=== PATIENT | male | born 1945 | race Caucasian/White ===

== ENCOUNTER 2017-08-28 08:17 | Inpatient (IN) | payer OTHER ==
[~2017-08-28] VITALS: Ht 170.2 cm; Wt 62.0 kg
[~2017-08-28 08:17] MED LIST: ASPI81 PO; CEPH500C3 PO; FISH1000 PO; LISI2.5T55 PO; TYLE3 PO; Z.0.UNKNOWN
[2017-08-28 08:20] VITALS: BP 141/85; PULSE 101; RESP 13; TEMP 98.6; O2SAT 97
[2017-08-28] MEDS ORDERED: SODIUM CHLORIDE 0.9% FLUSH 10 ML FLUSH IVF PRN (09:30)
[2017-08-28] MEDS ORDERED: ONDANSETRON HCL 4 MG/2 ML VIAL IV PUSH ONE (09:30)
[2017-08-28] MEDS ORDERED: MORPHINE SULFATE 4 MG/ML INJ IV PUSH ONE (09:30)
[2017-08-28] MEDS ORDERED: LIDOCAINE 1%/EPINEPHrine 1:100,000 SOLN 20 ML VIAL INFIL ONE (09:30)
[2017-08-28] MEDS ORDERED: CLINDAMYCIN INJ 600 MG in SODIUM CHLORIDE 0.9% INJ 100 ML IV ONE (09:30)
[2017-08-28 09:47] LABS: AUTOMATED NEUTROPHIL # 18.7 TH/MM3 (1.8-7.7); BASOPHIL # 0.1 TH/MM3 (0-0.2); BASOPHIL % 0.4 % (0.0-2.0); EOSINOPHIL % 0.1 % (0.0-4.0); HEMATOCRIT 40.4 % (39.0-51.0); HEMOGLOBIN 13.5 GM/DL (13.0-17.0); LYMPH % 5.1 % (9.0-44.0); LYMPHOCYTE # 1.1 TH/MM3 (1.0-4.8); MEAN CELL VOLUME 92.6 FL (80.0-100.0); MEAN CORPUSCULAR HGB CONC 33.4 % (32.0-36.0); MEAN PLATELET VOLUME 8.2 FL (7.0-11.0); MONO % 10.4 % (0.0-8.0); MONOCYTE # 2.3 TH/MM3 (0-0.9); PLATELET COUNT 282 TH/MM3 (150-450); RED BLOOD COUNT 4.36 MIL/MM3 (4.50-5.90); WHITE BLOOD COUNT 22.3 TH/MM3 (4.0-11.0)
[2017-08-28 10:03] LABS: BICARBONATE 29.2 MEQ/L (21.0-32.0); CREATININE 0.92 MG/DL (0.60-1.30)
[2017-08-28] MEDS ORDERED: SODIUM CHLOR 0.9% 1000 ML INJ 1,000 ML IV ONE ×2 (10:45)
[2017-08-28] MEDS ORDERED: IOHEXOL 350 MG/ML 10 ML VIAL (for RAD DIAG) IVCONTRAST ONE (10:48)
--- NOTE | 2017-08-28 11:14 | PD ---
HPI . Neck pain Chief Complaint: Skin Problem Time Seen by Provider: 09:18 Travel History International Travel<30 days: No Contact w/Intl Traveler<30days: No Traveled to known affect area: No History of Present Illness HPI This patient was sent to us from the OR clinic for posterior neck pain. He noticed a small pimple about a week ago. It has been getting progressively worse since that time. He subsequently presented to the OR clinic today they wished and treatment. They sent him to us. The patient denies any fevers or chills. He rates his pain 5/10. No modifying factors. He has a history of hypertension but not diabetes. No IV drug abuse. No IVDA. PFSH Past Medical History High Cholesterol: Yes Coronary Artery Disease: Yes Diminished Hearing: No Hypertension: Yes Past Surgical History Appendectomy: Yes Cholecystectomy: Yes Social History Alcohol Use: No Tobacco Use: Yes (1 PPD) Substance Use: No Allergies-Medications (Allergen,Severity, Reaction): Coded Allergies: No Known Allergies (Verified Allergy, Unknown, 08/28/17) Reported Meds & Prescriptions Reported Meds & Active Scripts Active Keflex (Cephalexin Monohydrate) 500 Mg Cap 1 Tab PO Q6 5 Days Tylenol #3 (Acetaminophen/Codeine Phosphate) 300 Mg/30 Mg Tab 1 Tab PO Q6HPRN Reported Fish Oil 1,000 Mg Cap 1,200 Mg PO Aspirin 81 Mg Tab 81 Mg PO DAILY Unknown Meds (Miscellaneous Medication) Misc Lisinopril 2.5 Mg Tab 2.5 Mg PO Review of Systems Except as stated in HPI: all other systems reviewed are Neg General / Constitutional: No: Fever, Chills HENT: Positive: Neck Pain Musculoskeletal: No: Myalgias Physical Exam Narrative GENERAL: This man is awake and alert and in no acute distress. SKIN: Large area of erythema on the posterior neck. It is indurated. There is a small area of fluctuance in the center of the swollen, erythematous area. It is tender. HEAD: Normocephalic/atraumatic. EYES: Pupils are equal. Extraocular movements are intact. NECK: Negative with the exception of the skin. CARDIOVASCULAR: Regular rate and rhythm. RESPIRATORY: Nonlabored respirations. MUSCULOSKELETAL: Atraumatic. NEUROLOGICAL: Nonfocal. PSYCHIATRIC: Appropriate mood and affect. Data Data Last Documented VS Vital Signs Date Time Temp Pulse Resp B/P (MAP) Pulse Ox O2 Delivery O2 Flow Rate FiO2 08/28/17 08:20 98.6 101 13 141/85 (103) 97 Orders Orders Basic Metabolic Panel (Bmp) (08/28/17 09:18) Complete Blood Count With Diff (08/28/17 09:18) Wound Culture And Gram Stain (08/28/17 09:18) Iv Access Insert/Monitor (08/28/17 09:18) Sodium Chloride 0.9% Flush (Ns Flush) (08/28/17 09:30) Clindamycin Inj (Cleocin Inj) (08/28/17 09:30) Lidocai-Epi 1%-1:100,000 Inj (Xylocaine- (08/28/17 09:30) Ct Soft Tiss Neck W Iv Cont (08/28/17 09:18) Ondansetron Inj (Zofran Inj) (08/28/17 09:30) Morphine Inj (Morphine Inj) (08/28/17 09:30) Lactic Acid (08/28/17 10:37) Sodium Chlor 0.9% 1000 Ml Inj (Ns 1000 M (08/28/17 10:45) Sodium Chlor 0.9% 1000 Ml Inj (Ns 1000 M (08/28/17 10:45) Iohexol 350 Inj (Omnipaque 350 Inj) (08/28/17 10:48) Admit To Inpatient (08/28/17 ) Vital Signs (Adult) Q4H (08/28/17 11:55) Activity Oob Ad Evette (08/28/17 11:55) Sodium Chloride 0.9% Flush (Ns Flush) (08/28/17 12:00) Sodium Chloride 0.9% Flush (Ns Flush) (08/28/17 21:00) Acetaminophen (Tylenol) (08/28/17 12:00) Ondansetron Inj (Zofran Inj) (08/28/17 12:00) Temazepam (Restoril) (08/28/17 12:00) Basic Metabolic Panel (Bmp) (08/29/17 06:00) Complete Blood Count With Diff (08/29/17 06:00) Resp Oxygen Adolph C Titrat 1-4 L (08/28/17 ) Enoxaparin Inj (Lovenox Inj) (08/28/17 12:00) Naloxone Inj (Narcan Inj) (08/28/17 12:00) Magnesium Hydroxide Liq (Milk Of Magnesi (08/28/17 12:00) Sennosides (Senokot) (08/28/17 12:00) Bisacodyl Supp (Dulcolax Supp) (08/28/17 12:00) Lactulose Liq (Lactulose Liq) (08/28/17 12:00) Inpatient Certification (08/28/17 ) Admit Order (Ed Use Only) (08/28/17 ) Vital Signs (Adult) Q4H (08/28/17 11:58) Diet Heart Healthy (08/28/17 Lunch) Activity Oob With Assistance (08/28/17 11:58) Notify Dr: Other (08/28/17 11:58) Labs Laboratory Tests Test 08/28/17 09:33 08/28/17 11:15 White Blood Count 22.3 TH/MM3 Red Blood Count 4.36 MIL/MM3 Hemoglobin 13.5 GM/DL Hematocrit 40.4 % Mean Corpuscular Volume 92.6 FL Mean Corpuscular Hemoglobin 31.0 PG Mean Corpuscular Hemoglobin Concent 33.4 % Red Cell Distribution Width 14.0 % Platelet Count 282 TH/MM3 Mean Platelet Volume 8.2 FL Neutrophils (%) (Auto) 84.0 % Lymphocytes (%) (Auto) 5.1 % Monocytes (%) (Auto) 10.4 % Eosinophils (%) (Auto) 0.1 % Basophils (%) (Auto) 0.4 % Neutrophils # (Auto) 18.7 TH/MM3 Lymphocytes # (Auto) 1.1 TH/MM3 Monocytes # (Auto) 2.3 TH/MM3 Eosinophils # (Auto) 0.0 TH/MM3 Basophils # (Auto) 0.1 TH/MM3 CBC Comment AUTO DIFF Differential Comment AUTO DIFF CONFIRMED Platelet Estimate NORMAL Platelet Morphology Comment NORMAL Blood Urea Nitrogen 9 MG/DL Creatinine 0.92 MG/DL Random Glucose 110 MG/DL Calcium Level 10.0 MG/DL Sodium Level 135 MEQ/L Potassium Level 3.8 MEQ/L Chloride Level 99 MEQ/L Carbon Dioxide Level 29.2 MEQ/L Anion Gap 7 MEQ/L Estimat Glomerular Filtration Rate 81 ML/MIN Lactic Acid Level 0.7 mmol/L MDM Medical Decision Making Medical Screen Exam Complete: Yes Emergency Medical Condition: Yes Differential Diagnosis My differential diagnosis includes but is not limited to localized wound infection, cellulitis, abscess Narrative Course This patient presents with an area of induration, erythema and tenderness on the posterior neck. An IV was started and he was given morphine/Zofran for pain. He was given clindamycin empirically. Blood cultures were also ordered. CBC & BMP Diagram 08/28/17 09:33 Calcium Level 10.0 A lactic acid level was added. Last Impressions Neck CT 08/28/17917 Signed Impressions: Service Date/Time: Monday, August 28, 2017 10:44 - CONCLUSION: 1. Cellulitis in the posterior left neck without abscess. 2. There is a 10 mm sebaceous cyst present also in the same location Dallin Real MD This patient will be admitted for IV antibiotics. LA 0.7 Sepsis Criteria SIRS Criteria (2 or more): Heart rate over 90, WBC > 39847, < 4000 or > 10% bands Sepsis Criteria (SIRS+source): Infect source susp/known Criteria Outcome: Meets SIRS criteria, Meets sepsis criteria Physician Communication Physician Communication Dr. Sargent will admit Diagnosis Primary Impression: Sepsis Qualified Codes: A41.9 - Sepsis, unspecified organism Additional Impression: Cellulitis of neck Admitting Information Admitting Physician Requests: Admit Condition: Stable Li Cordova MD Aug 28, 2017 11:14
--- NOTE | 2017-08-28 11:17 | RADRPT ---
EXAM DATE/TIME: 08/28/2017 10:44 [facility] COMPARISON: No previous studies available for comparison. INDICATIONS : Left sided posterior neck paion with reddening IV CONTRAST: 65 cc Omnipaque 350 (iohexol) IV RADIATION DOSE: 17.18 CTDIvol (mGy) MEDICAL HISTORY : Hypertension. Cardiovascular disease SURGICAL HISTORY : Cholecystectomy. ENCOUNTER: Initial ACUITY: 1 day PAIN SCALE: 5/10 LOCATION: Left posterior neck TECHNIQUE: Volumetric scanning of the neck was performed. Using automated exposure control and adjustment of th e mA and/or kV according to patient size, radiation dose was kept as low as reasonably achievable to obtain optimal diagnostic quality images. DICOM format image data is available electronically for r eview and comparison. FINDINGS: Examination of the skull base demonstrates no evidence of deep infiltrating mucosal lesion. The oroph arynx, hypopharynx, glottic and subglottic airway demonstrate no abnormality. Examination of the neck for adenopathy demonstrates no abnormally large lymph nodes by CT criteria. T he thyroid gland demonstrates resection of the left lobe Lung apices demonstrate no evidence of pulmonary nodule. Bone windows are unremarkable. There is skin thickening in the posterior left neck with cellulitis and edema in the subcutaneous tis sues. There is no evidence of abscess. CONCLUSION: 1. Cellulitis in the posterior left neck without abscess. 2. There is a 10 mm sebaceous cyst present also in the same location Dallin Real MD on August 28, 2017 at 11:06 Board Certified Radiologist. This report was verified electronically.
[2017-08-28] MEDS ORDERED: BISACODYL 10 MG SUPP RECTAL PRN (12:00)
[2017-08-28] MEDS ORDERED: LACTULOSE SYRUP 20 GM/30 ML CUP PO PRN (12:00)
[2017-08-28] MEDS ORDERED: SODIUM CHLORIDE 0.9% FLUSH 10 ML FLUSH IV FLUSH PRN (12:00)
[2017-08-28] MEDS ORDERED: ACETAMINOPHEN 325 MG TAB PO PRN (12:00)
[2017-08-28] MEDS ORDERED: NALOXONE HCL 0.4 MG/ML AMP IV PUSH PRN (12:00)
[2017-08-28] MEDS ORDERED: MAGNESIUM HYDROXIDE SUSP 30 ML CUP PO PRN (12:00)
[2017-08-28] MEDS ORDERED: ONDANSETRON HCL 4 MG/2 ML VIAL IVP PRN (12:00)
[2017-08-28] MEDS ORDERED: SENNOSIDES 8.6 MG TAB PO PRN (12:00)
[2017-08-28 12:01] VITALS: BP 214/98; PULSE 103; RESP 17; TEMP 99.5; O2SAT 95
[2017-08-28] MEDS ORDERED: OMEGCAP PO (12:06)
[2017-08-28] MEDS ORDERED: LISI-515 PO (12:06)
[2017-08-28 12:31] VITALS: BP 178/92; PULSE 105; RESP 19; O2SAT 96
[2017-08-28] MEDS: ENOXAPARIN SODIUM 40 MG/0.4 ML SYRINGE SQ SCH (13:00)
[2017-08-28] MEDS ORDERED: Vancomycin Consult Pharmacy 1 EA OTHER SCH (15:15)
[2017-08-28] MEDS ORDERED: VANCOMYCIN INJ 1,250 MG in SODIUM CHLOR 0.9% 250 ML INJ 250 ML IV ONE (15:15)
--- NOTE | 2017-08-28 15:34 | HHI.HP ---
[facility] No Primary Care Physician Admission Diagnosis cellulitis posterior neck Diagnoses: Chief Complaint: Back of the Neck swelling, pain. Travel History International Travel<30 Days: No Contact w/Intl Traveler <30 Da: No Traveled to Known Affected Are: No Sepsis Criteria SIRS Criteria (2 or more): Heart rate over 90, WBC > 74949, < 4000 or > 10% bands Sepsis Criteria (SIRS+source): Infect source susp/known Criteria Outcome: Meets SIRS criteria, Meets sepsis criteria History of Present Illness Mr. Saldana is a pleasant 72-year-old [employer] with a history of hypertension who presents to the emergency department due to swelling and pain on the back of his neck. Started about 5 days prior to his admission, patient reports initially the lump on his neck that kept growing and became more painful. He denies any discharge from the lump. He denies any fever but reports chills. He applied some topical antibiotics as well as heart compression without any relief of symptoms. He went to his primary care physician at the [facility] who referred patient to the emergency department. At the time of this interview, patient is resting well in bed. He complains of neck pain. No fever. Denies any changes in bowel or bladder habits. Denies any chest pain, shortness of breath, cough, abdominal pain. Review of Systems Except as stated in HPI: all other systems reviewed are Neg Past Family Social History Past Medical History Hypertension, insomnia, GERD Past Surgical History Cholecystectomy, appendectomy Reported Medications Lisinopril 20 minute grams daily Trazodone Ranitidine Allergies: Coded Allergies: No Known Allergies (Verified Allergy, Unknown, 08/28/17) Family History No family history of cancer or heart disease. Social History Patient smokes about 1 pack a day. Quit drinking about 50 years ago. Physical Exam Vital Signs Vital Signs Date Time Temp Pulse Resp B/P (MAP) Pulse Ox O2 Delivery O2 Flow Rate FiO2 08/28/17 12:31 105 19 178/92 (120) 96 Nasal Cannula 2.00 08/28/17 12:01 99.5 103 17 214/98 (136) 95 Nasal Cannula 2.00 10/30/17 08:20 98.6 101 13 141/85 (103 97 Physical Exam GENERAL: This is a well-nourished, well-developed patient, in no apparent distress. SKIN: No rashes, ecchymoses or lesions. Warm and dry. HEAD: Atraumatic. Normocephalic. No temporal or scalp tenderness. EYES: Pupils equal round and reactive. No injection or drainage. ENT: Nose without bleeding, purulent drainage or septal hematoma. Airway patent. NECK: Trachea midline. No lymphadenopathy. Supple, nontender, no meningeal signs. Back of the neck has large induration without any significant erythema, tender to palpation. No drainage. CARDIOVASCULAR: Tachycardic, regular rhythm without murmurs, gallops, or rubs. No JVD. RESPIRATORY: Moderate air entry, no appreciable wheezing. No wheezes, rales, or rhonchi. GASTROINTESTINAL: Abdomen soft, non-tender, nondistended. No guarding. MUSCULOSKELETAL: Extremities without clubbing, cyanosis, or edema. NEUROLOGICAL: Awake and alert. Cranial nerves II through XII intact. No focal neurological deficits. Normal speech. Laboratory Laboratory Tests Test 08/28/17 09:33 08/28/17 11:15 White Blood Count 22.3 Red Blood Count 4.36 Hemoglobin 13.5 Hematocrit 40.4 Mean Corpuscular Volume 92.6 Mean Corpuscular Hemoglobin 31.0 Mean Corpuscular Hemoglobin Concent 33.4 Red Cell Distribution Width 14.0 Platelet Count 282 Mean Platelet Volume 8.2 Neutrophils (%) (Auto) 84.0 Lymphocytes (%) (Auto) 5.1 Monocytes (%) (Auto) 10.4 Eosinophils (%) (Auto) 0.1 Basophils (%) (Auto) 0.4 Neutrophils # (Auto) 18.7 Lymphocytes # (Auto) 1.1 Monocytes # (Auto) 2.3 Eosinophils # (Auto) 0.0 Basophils # (Auto) 0.1 CBC Comment AUTO DIFF Differential Comment AUTO DIFF CONFIRMED Platelet Estimate NORMAL Platelet Morphology Comment NORMAL Blood Urea Nitrogen 9 Creatinine 0.92 Random Glucose 110 Calcium Level 10.0 Sodium Level 135 Potassium Level 3.8 Chloride Level 99 Carbon Dioxide Level 29.2 Anion Gap 7 Estimat Glomerular Filtration Rate 81 Lactic Acid Level 0.7 Result Diagram: 08/28/1733 08/28/17932 Imaging Last Impressions Neck CT 08/28/17917 Signed Impressions: Service Date/Time: Monday, August 28, 2017 10:44 - CONCLUSION: 1. Cellulitis in the posterior left neck without abscess. 2. There is a 10 mm sebaceous cyst present also in the same location MD Nick Antonio VTE Risk Assessment Caprini VTE Risk Assessment: Mod/High Risk (score >= 2) Caprini Risk Assessment Model Point Value = 1 Point Value = 2 Point Value = 3 Point Value = 5 Age 41-60 Minor surgery BMI > 25 kg/m2 Swollen legs Varicose veins or History of unexplained or recurrent spontaneous Oral contraceptives or hormone replacement Sepsis (< 1 month) Serious lung disease, including pneumonia (< 1 month) Abnormal pulmonary function Acute myocardial infarction Congestive heart failure (< 1 month) History of inflammatory bowel disease Medical patient at bed rest Age 61-74 Arthroscopic surgery Major open surgery (> 45 min) Laparoscopic surgery (> 45 min) Malignancy Confined to bed (> 72 hours) Immobilizing plaster cast Central venous access Age >= 75 History of VTE Family history of VTE Factor V Leiden Prothrombin [id number] Lupus anticoagulant Anticardiolipin antibodies Elevated serum homocysteine Heparin-induced thrombocytopenia Other congenital or acquired thrombophilia Stroke (< 1 month) Elective arthroplasty Hip, pelvis, or leg fracture Acute spinal cord injury (< 1 month) Prophylaxis Regimen Total Risk Factor Score Risk Level Prophylaxis Regimen 0-1 Low Early ambulation 2 Moderate Order ONE of the following: *Sequential Compression Device (SCD) *Heparin 5000 units SQ BID 3-4 Higher Order ONE of the following medications: *Heparin 5000 units SQ TID *Enoxaparin/Lovenox 40 mg SQ daily (WT < 150 kg, CrCl > 30 mL/min) *Enoxaparin/Lovenox 30 mg SQ daily (WT < 150 kg, CrCl > 10-29 mL/min) *Enoxaparin/Lovenox 30 mg SQ BID (WT < 150 kg, CrCl > 30 mL/min) AND/OR *Sequential Compression Device (SCD) 5 or more Highest Order ONE of the following medications: *Heparin 5000 units SQ TID (Preferred with Epidurals) *Enoxaparin/Lovenox 40 mg SQ daily (WT < 150 kg, CrCl > 30 mL/min) *Enoxaparin/Lovenox 30 mg SQ daily (WT < 150 kg, CrCl > 10-29 mL/min) *Enoxaparin/Lovenox 30 mg SQ BID (WT < 150 kg, CrCl > 30 mL/min) AND *Sequential Compression Device (SCD) Assessment and Plan Problem List: (1) Sepsis ICD Code: A41.9 - Sepsis, unspecified organism Status: Acute (2) Cellulitis of neck ICD Code: L03.221 - Cellulitis of neck Status: Acute (3) HTN (hypertension) ICD Code: I10 - Essential (primary) hypertension (4) GERD (gastroesophageal reflux disease) ICD Code: K21.9 - Gastro-esophageal reflux disease without esophagitis (5) Insomnia ICD Code: G47.00 - Insomnia, unspecified Assessment and Plan Mr. Saldana is a pleasant 72-year-old [employer] with a history of hypertension who presents to the emergency department today due to 5 day duration of back of the neck swelling, pain that started out as a lump. Patient denies fever but reports chills. - Sepsis (WBC 22.3K, pulse 101, infection neck cellulitis) - Cellulitis of the neck - No purulent drainage. However, due to SIRS, we will cover him with Vancomycin (MRSA coverage). - Will start patient on Ceftriaxone 2g Q24hrs for Streptococcus and MSSA coverage. - If patient remains afebrile and leukocytosis improves, consider discontinuing vancomycin on 08/29/2017. - We'll obtain blood cultures. - Pain management with acetaminophen, Percocet, Dilaudid IV when necessary. - Hypertension - On arrival blood pressure was 141/85, later on increased to 214/98 and 178/ 92. - Possibly due to pain. We'll continue home medication lisinopril 20 mg daily. - Clonidine 0.1mg Q6hrs PRN. - Insomnia - GERD - Continue trazodone and ranitidine. Full code. Lovenox. Physician Certification 2 Midnight Certification Type: Admission for Inpatient Services Order for Inpatient Services The services are ordered in accordance with Medicare regulations or non- Medicare payer requirements, as applicable. In the case of services not specified as inpatient-only, they are appropriately provided as inpatient services in accordance with the 2-midnight benchmark. Estimated LOS (days): 3 days is the estimated time the patient will need to remain in the hospital, assuming treatment plan goals are met and no additional complications. Post-Hospital Plan: Home Problem Qualifiers (1) Sepsis: Qualified Codes: A41.9 - Sepsis, unspecified organism Delmar Sargent DO Aug 28, 2017 15:34
[2017-08-28] MEDS ORDERED: LISINOPRIL 20 MG TAB PO ONE (15:45)
[2017-08-28 16:00] VITALS: BP 187/88; PULSE 98; RESP 16; TEMP 99.8; O2SAT 97
[2017-08-28] MEDS: VANCOMYCIN 1,000 MG/NS 250 ML IV SCH ×2 (16:22)
[2017-08-28] MEDS: oxyCODONE/ACETAMINOPHEN 7.5 MG/325 MG TAB PO PRN ×2 (16:33→22:21)
[2017-08-28] MEDS: cefTRIAXone INJ 2,000 MG in SODIUM CHLORIDE 0.9% INJ 100 ML IV SCH (18:34)
[2017-08-28 21:16] VITALS: BP 137/65; PULSE 86; RESP 20; TEMP 98.5; O2SAT 98
[2017-08-28] MEDS: SODIUM CHLORIDE 0.9% FLUSH 10 ML FLUSH IV FLUSH SCH (21:39)
[2017-08-29] VITALS (9 sets, daily range): BP systolic 123–194; BP diastolic 58–86; PULSE 84–93; RESP 18–20; TEMP 97.1–100; O2SAT 92–97
[2017-08-29] MEDS: cloNIDine HCL 0.1 MG TAB PO PRN ×2 (03:59→20:38)
[2017-08-29] MEDS: oxyCODONE/ACETAMINOPHEN 7.5 MG/325 MG TAB PO PRN ×3 (03:59→20:38)
[2017-08-29 06:59] LABS: AUTOMATED NEUTROPHIL # 19.8 TH/MM3 (1.8-7.7); BASOPHIL # 0.1 TH/MM3 (0-0.2); BASOPHIL % 0.3 % (0.0-2.0); EOSINOPHIL # 0.5 TH/MM3 (0-0.4); EOSINOPHIL % 1.9 % (0.0-4.0); HEMATOCRIT 34.8 % (39.0-51.0); HEMOGLOBIN 11.7 GM/DL (13.0-17.0); LYMPH % 4.2 % (9.0-44.0); MEAN CELL VOLUME 93.1 FL (80.0-100.0); MEAN CORPUSCULAR HEMOGLOBIN 31.4 PG (27.0-34.0); MEAN CORPUSCULAR HGB CONC 33.7 % (32.0-36.0); MEAN PLATELET VOLUME 8.5 FL (7.0-11.0); MONO % 11.3 % (0.0-8.0); MONOCYTE # 2.7 TH/MM3 (0-0.9); NEUT % 82.3 % (16.0-70.0); PLATELET COUNT 239 TH/MM3 (150-450); RED BLOOD COUNT 3.74 MIL/MM3 (4.50-5.90); RED CELL DISTRIBUTION WIDTH 13.9 % (11.6-17.2)
[2017-08-29 07:37] LABS: BICARBONATE 31.1 MEQ/L (21.0-32.0); CALCIUM 8.9 MG/DL (8.5-10.1); CREATININE 1.05 MG/DL (0.60-1.30)
[2017-08-29] MEDS: LISINOPRIL 20 MG TAB PO SCH (08:14)
[2017-08-29] MEDS: SODIUM CHLORIDE 0.9% FLUSH 10 ML FLUSH IV FLUSH SCH ×2 (08:14→20:39)
[2017-08-29 09:17] LABS: BANDS 9 % (0-6); LYMPHOCYTES 1 % (9-44); METAMYELOCYTES 1 % (0-1); MONOCYTES 2 % (0-8); NEUTROPHIL # MANUAL DIFF 22.8 TH/MM3 (1.8-7.7); POLYS (SEG NEUTROPHILS) 85 % (16-70)
[2017-08-29] MEDS: VANCOMYCIN 1,000 MG/NS 250 ML IV SCH ×2 (09:47)
[2017-08-29] MEDS: ENOXAPARIN SODIUM 40 MG/0.4 ML SYRINGE SQ SCH (13:27)
--- NOTE | 2017-08-29 15:40 | HHI.PR ---
Subjective Remarks Follow up cellulitis. Patient reports continued pain in the posterior neck. No drainage. He is having itching on his legs and has a rash, which he thinks is from laying down too much. He states "I'm not allergic to anything". No dyspnea or wheezing. Objective Vitals Vital Signs Date Time Temp Pulse Resp B/P (MAP) Pulse Ox O2 Delivery O2 Flow Rate FiO2 08/29/17 11:13 98.2 84 20 146/67 (93) 97 08/29/17 08:36 97 Nasal Cannula 2.00 08/29/17 07:48 98.2 87 20 158/71 (100) 94 08/29/17 04:19 96 Nasal Cannula 2.00 08/29/17 04:00 97.1 89 20 194/86 (122) 93 08/29/17 01:20 99.0 93 20 126/68 (87) 96 08/28/17 21:16 98.5 86 20 137/65 (89) 98 08/28/17 16:00 99.8 98 16 187/88 (121) 97 I/O 08/28/17 08/28/17 08/28/17 08/29/17 08/29/17 08/29/17 07:00 15:00 23:00 07:00 15:00 23:00 Intake Total 2104 ml 340 ml 970 ml Balance 2104 ml 340 ml 970 ml Intake Oral 720 ml IV Total 2104 ml 340 ml 250 ml # Voids 5 4 # Bowel Movements 1 0 Result Diagram: 08/29/17 0631 08/29/17 0631 Imaging Last Impressions Neck CT 08/28/1718 Signed Impressions: Service Date/Time: Monday, August 28, 2017 10:44 - CONCLUSION: 1. Cellulitis in the posterior left neck without abscess. 2. There is a 10 mm sebaceous cyst present also in the same location Dallin Real MD Objective Remarks General: Elderly male in no acute distress. Heart: Regular rate and rhythm. No murmur. Lungs: Clear to auscultation bilaterally. No wheezes, rales, or rhonchi. Breathing is nonlabored. Abdomen: Soft, nontender, nondistended. Extremities: No lower extremity edema. Psych: Alert and oriented. Skin: Significant induration of the posterior neck. There is overlying erythema. The area is tender to palpation. No open wound or drainage. No areas of fluctuance noted. Procedures None Urinary Catheter: No Vascular Central Line Catheter: No A/P Problem List: (1) Sepsis ICD Code: A41.9 - Sepsis, unspecified organism Status: Acute (2) Cellulitis of neck ICD Code: L03.221 - Cellulitis of neck Status: Acute (3) HTN (hypertension) ICD Code: I10 - Essential (primary) hypertension (4) GERD (gastroesophageal reflux disease) ICD Code: K21.9 - Gastro-esophageal reflux disease without esophagitis (5) Insomnia ICD Code: G47.00 - Insomnia, unspecified Assessment and Plan 1. Sepsis: Patient presented with tachycardia, leukocytosis. Source is neck cellulitis. Continue antibiotics. Monitor labs. 2. Cellulitis of the neck: No open wound or drainage. No apparent fluctuance. Continue antibiotics, including coverage for MRSA. WBCs are increased again today. Blood cultures are pending. If abscess forms, will likely need to be drained. 3. Hypertension: Blood pressure likely increased secondary to pain. Continue lisinopril. Clonidine as needed. 4. GERD: Continue ranitidine. 5. Insomnia: Continue trazodone. 6. DVT prophylaxis: Lovenox. Problem Qualifiers (1) Sepsis: Qualified Codes: A41.9 - Sepsis, unspecified organism Ulices Gifford MD Aug 29, 2017 15:40
[2017-08-29] MEDS: cefTRIAXone INJ 2,000 MG in SODIUM CHLORIDE 0.9% INJ 100 ML IV SCH (17:04)
[2017-08-29] MEDS: HYDROmorphone HCL PF 0.5 MG/0.5 ML SYRINGE IV PUSH PRN (17:51)
[2017-08-30] VITALS (7 sets, daily range): BP systolic 136–196; BP diastolic 63–77; PULSE 72–99; RESP 16–20; TEMP 98.8–99.9; O2SAT 90–97
[2017-08-30] MEDS: TEMAZEPAM 15 MG CAP PO PRN ×2 (01:00→22:59)
[2017-08-30] MEDS: HYDROmorphone HCL PF 0.5 MG/0.5 ML SYRINGE IV PUSH PRN (01:00)
[2017-08-30] MEDS: VANCOMYCIN 1,000 MG/NS 250 ML IV SCH ×4 (04:24→23:14)
[2017-08-30] MEDS: oxyCODONE/ACETAMINOPHEN 7.5 MG/325 MG TAB PO PRN ×3 (04:25→23:17)
[2017-08-30] MEDS: cloNIDine HCL 0.1 MG TAB PO PRN ×2 (04:27→12:08)
[2017-08-30] MEDS: SODIUM CHLORIDE 0.9% FLUSH 10 ML FLUSH IV FLUSH SCH ×2 (08:23→23:14)
[2017-08-30] MEDS: LISINOPRIL 20 MG TAB PO SCH (08:29)
[2017-08-30 09:39] LABS: AUTOMATED NEUTROPHIL # 15.6 TH/MM3 (1.8-7.7); BASOPHIL % 0.2 % (0.0-2.0); EOSINOPHIL # 0.4 TH/MM3 (0-0.4); HEMATOCRIT 34.9 % (39.0-51.0); HEMOGLOBIN 11.6 GM/DL (13.0-17.0); LYMPH % 6.3 % (9.0-44.0); LYMPHOCYTE # 1.2 TH/MM3 (1.0-4.8); MEAN CELL VOLUME 93.3 FL (80.0-100.0); MEAN CORPUSCULAR HGB CONC 33.2 % (32.0-36.0); MONO % 10.3 % (0.0-8.0); NEUT % 81.2 % (16.0-70.0); PLATELET COUNT 265 TH/MM3 (150-450); RED BLOOD COUNT 3.74 MIL/MM3 (4.50-5.90); RED CELL DISTRIBUTION WIDTH 13.7 % (11.6-17.2); WHITE BLOOD COUNT 19.2 TH/MM3 (4.0-11.0)
[2017-08-30 09:56] LABS: BICARBONATE 30.4 MEQ/L (21.0-32.0); CALCIUM 9.1 MG/DL (8.5-10.1); CREATININE 0.75 MG/DL (0.60-1.30)
[2017-08-30] MEDS: ENOXAPARIN SODIUM 40 MG/0.4 ML SYRINGE SQ SCH (12:08)
--- NOTE | 2017-08-30 13:58 | PD.CONS ---
HPI Service General surgery Consult Requested By Dr. Gifford Reason for Consult Neck abscess Primary Care Physician No Primary Care Physician History of Present Illness The patient is a 72-year-old male admitted for cellulitis of the posterior neck yesterday. He had noticed a small pimple about a week ago. He had a CT scan of the neck which showed cellulitis but no abscess. Today, the infection appeared more focal with possible fluid collection and therefore I was consulted for possible incision and drainage. The patient does complain of pain. His white blood count is 19,000. Review of Systems Constitutional: DENIES: Fever, Chills Eyes: DENIES: Eye pain Ears, nose, mouth, throat: DENIES: Oral lesions, Throat pain Respiratory: DENIES: Cough, Shortness of breath Cardiovascular: DENIES: Chest pain, Palpitations Gastrointestinal: DENIES: Abdominal pain, Nausea, Vomiting Neurologic: DENIES: Paresthesias, Seizures Past Family Social History Past Medical History Hypertension Past Surgical History Appendectomy Cholecystectomy Reported Medications Reported Meds & Active Scripts Active Reported [place]-3 Fish Oil/Vitamin (Fish Oil-Cholecalciferol) 1,000-1,000 Mg Cap 1 Cap PO DAILY Lisinopril 20 Mg Tab 20 Mg PO DAILY Allergies: Coded Allergies: No Known Allergies (Verified Allergy, Unknown, 08/28/17) Active Ordered Medications Current Medications Medications (Trade) Dose Ordered Sig/Haritha Route Start Time Stop Time Status Last Admin (NS Flush) 2 ml UNSCH PRN IVF 08/28/17 09:30 (NS Flush) 2 ml BID IV FLUSH 08/28/17 21:00 08/30/17 08:23 (Tylenol) 650 mg Q4H PRN PO 08/28/17 12:00 (Zofran Inj) 4 mg Q6H PRN IVP 08/28/17 12:00 (Restoril) 15 mg HS PRN PO 08/28/17 21:00 08/30/17 01:00 (Lovenox Inj) 40 mg Q24H SQ 08/28/17 13:00 08/30/17 12:08 (Narcan Inj) 0.4 mg UNSCH PRN IV PUSH 08/28/17 12:00 (Milk Of Magnesia Liq) 30 ml Q12H PRN PO 08/28/17 12:00 (Senokot) 17.2 mg Q12H PRN PO 08/28/17 12:00 (Dulcolax Supp) 10 mg DAILY PRN RECTAL 08/28/17 12:00 (Lactulose Liq) 30 ml DAILY PRN PO 08/28/17 12:00 (Percocet 7.5-325 Mg) 1 tab Q6H PRN PO 08/28/17 16:00 08/30/17 13:51 (Dilaudid Pf Inj) 0.5 mg Q4H PRN IV PUSH 08/28/17 16:00 08/30/17 01:00 Ceftriaxone Sodium 2000 mg/ Sodium Chloride 100 ml @ 200 mls/hr Q24H IV 08/28/17 17:00 08/29/17 17:04 Pharmacy Profile Note 0 ml @ 0 mls/hr UNSCH OTHER 08/28/17 15:15 Vancomycin HCl 1000 mg/Sodium Chloride 250 ml @ 250 mls/hr Q18H IV 08/28/17 16:00 08/30/17 04:24 Miscellaneous Information SPECIFIC LAB TO BE DRAWN:VANCOMY... ONCE ONCE .XX 08/30/17 21:45 08/30/17 21:46 (Prinivil) 20 mg DAILY PO 08/29/17 09:00 08/30/17 08:29 (Catapres) 0.1 mg Q6H PRN PO 08/28/17 15:45 08/30/17 12:08 Family History Noncontributory Social History He smokes 1 pack of cigarettes daily. No alcohol intake. Physical Exam Vital Signs Vital Signs Date Time Temp Pulse Resp B/P (MAP) Pulse Ox O2 Delivery O2 Flow Rate FiO2 08/30/17 13:33 99.5 80 18 196/77 (116) 95 08/30/17 08:51 99.1 82 16 140/63 (88) 92 08/30/17 05:23 18 08/30/17 04:00 98.8 99 20 167/70 (102) 90 08/30/17 01:55 18 08/30/17 00:00 99.9 82 20 166/72 (103) 95 08/29/17 20:27 99.3 91 18 183/79 (113) 97 08/29/17 20:00 100.0 92 18 185/84 (117) 92 08/29/17 16:04 98.6 84 20 123/58 (79) 93 Physical Exam GENERAL: Awake and alert. No acute distress. Appears somewhat chronically ill. HEAD: Normocephalic. Atraumatic. NECK: Posterior neck with approximately 8 cm diameter area of induration and erythema. No fluctuance. In the center there is more swelling with white pustules. CHEST: Nonlabored breathing. No respiratory distress. CARDIOVASCULAR: Regular rate and rhythm. ABDOMEN: Midline laparotomy scar. Ventral hernia above the umbilicus easily reducible and nontender. SKIN: Warm, dry, nonjaundiced. Laboratory Laboratory Tests Test 08/30/17 08:24 White Blood Count 19.2 Red Blood Count 3.74 Hemoglobin 11.6 Hematocrit 34.9 Mean Corpuscular Volume 93.3 Mean Corpuscular Hemoglobin 31.0 Mean Corpuscular Hemoglobin Concent 33.2 Red Cell Distribution Width 13.7 Platelet Count 265 Mean Platelet Volume 9.0 Neutrophils (%) (Auto) 81.2 Lymphocytes (%) (Auto) 6.3 Monocytes (%) (Auto) 10.3 Eosinophils (%) (Auto) 2.0 Basophils (%) (Auto) 0.2 Neutrophils # (Auto) 15.6 Lymphocytes # (Auto) 1.2 Monocytes # (Auto) 2.0 Eosinophils # (Auto) 0.4 Basophils # (Auto) 0.0 CBC Comment DIFF FINAL Differential Comment Blood Urea Nitrogen 13 Creatinine 0.75 Random Glucose 76 Calcium Level 9.1 Sodium Level 137 Potassium Level 3.7 Chloride Level 100 Carbon Dioxide Level 30.4 Anion Gap 7 Estimat Glomerular Filtration Rate 103 Date/Time Source Procedure Growth Status 08/28/17 15:32 Blood Peripheral Aerobic Blood Culture - Preliminary NO GROWTH IN 2 DAYS Resulted 08/28/17 15:32 Blood Peripheral Anaerobic Blood Culture - Preliminary NO GROWTH IN 2 DAYS Resulted Result Diagram: 08/30/1782308/30/17823 Imaging Last Impressions Neck CT 08/28/17 0918 Signed Impressions: Service Date/Time: Monday, August 28, 2017 10:44 - CONCLUSION: 1. Cellulitis in the posterior left neck without abscess. 2. There is a 10 mm sebaceous cyst present also in the same location Dallin Real MD Assessment and Plan Assessment and Plan 72-year-old male with posterior neck cellulitis possibly developing into an abscess. I do not feel any fluctuance at this time but I'll reevaluate him tomorrow. Reji Leiva MD Aug 30, 2017 13:58
--- NOTE | 2017-08-30 13:59 | HHI.PR ---
Subjective Remarks Written by Winifred Ellison, acting as scribe for Dr. Gifford on 08/30/17 at 13: 38. Follow-up visit next cellulitis, ?sebaceous cyst involvement. Patient seen and examined today. Reports he still continues to have some neck pain but has improved from prior. Denies SOB/ dyspnea. Denies chest pain, palpitations, headaches, dizziness. Denies fevers, chills, n/v/d. Objective Vitals Vital Signs Date Time Temp Pulse Resp B/P (MAP) Pulse Ox O2 Delivery O2 Flow Rate FiO2 08/30/17 13:33 99.5 80 18 196/77 (116) 95 08/30/17 08:51 99.1 82 16 140/63 (88) 92 08/30/17 05:23 18 08/30/17 04:00 98.8 99 20 167/70 (102) 90 08/30/17 01:55 18 08/30/17 00:00 99.9 82 20 166/72 (103) 95 08/29/17 20:27 99.3 91 18 183/79 (113) 97 08/29/17 20:00 100.0 92 18 185/84 (117) 92 08/29/17 16:04 98.6 84 20 123/58 (79) 93 I/O 08/29/17 08/29/17 08/29/17 08/30/17 08/30/17 08/30/17 07:00 15:00 23:00 07:00 15:00 23:00 Intake Total 970 ml 450 ml 250 ml Balance 970 ml 450 ml 250 ml Intake Oral 720 ml IV Total 250 ml 450 ml 250 ml # Voids 5 4 2 3 # Bowel Movements 1 0 Result Diagram: 08/30/1782308/30/17823 Imaging Last Impressions Neck CT 08/28/17917 Signed Impressions: Service Date/Time: Monday, August 28, 2017 10:44 - CONCLUSION: 1. Cellulitis in the posterior left neck without abscess. 2. There is a 10 mm sebaceous cyst present also in the same location Dallin Real MD Objective Remarks GENERAL: This is a well-nourished, well-developed patient, in no apparent distress. SKIN: Warm and dry. HEENT: Right occipital area with small erythematous lesion. Normocephalic. Pupils equal round and reactive. Nose without bleeding. Airway patent. NECK: Trachea midline. Back of the neck erythema and edema noted, slight fluctuance surrounding the center, small scab in the center noted CARDIOVASCULAR: Regular rate and rhythm without murmurs, gallops, or rubs. RESPIRATORY: Clear to auscultation. Breath sounds equal bilaterally. No wheezes , rales, or rhonchi. GASTROINTESTINAL: Abdomen soft, non-tender, nondistended. Bowel Sounds normoactive x4. MUSCULOSKELETAL: Extremities without clubbing, cyanosis, or edema. NEUROLOGICAL: Awake and alert. Oriented to time, place, person. No focal neuro deficit. Moves all extremities. Normal speech. Procedures None A/P Problem List: (1) Sepsis ICD Code: A41.9 - Sepsis, unspecified organism Status: Acute (2) Cellulitis of neck ICD Code: L03.221 - Cellulitis of neck Status: Acute (3) HTN (hypertension) ICD Code: I10 - Essential (primary) hypertension (4) GERD (gastroesophageal reflux disease) ICD Code: K21.9 - Gastro-esophageal reflux disease without esophagitis (5) Insomnia ICD Code: G47.00 - Insomnia, unspecified Assessment and Plan Mr. Saldana is a pleasant 72-year-old [employer] with a history of hypertension who presents to the emergency department today due to 5 day duration of back of the neck swelling, pain that started out as a lump. Patient denies fever but reports chills. Sepsis (WBC 22.3K, pulse 101, infection neck cellulitis) Cellulitis of the neck - No purulent drainage. However, due to SIRS/ Sepsis, we will cover him with Vancomycin (MRSA coverage). - Cont Ceftriaxone 2g Q24hrs for Streptococcus and MSSA coverage. - Patient remains with low grade temp, neck erythema now have slightly extended with fluctuance. Leukocytosis improving, will continue vancomycin for now consider to possibly stop 09/02/15, if improvement with leukocytosis and patient is afebrile. - Blood cultures no growth to date - Pain management with acetaminophen, Percocet, Dilaudid IV for breakthrough pain when necessary. - Slightly extended neck erythema with center fluctuance - mild. Consult surgery for possible I&D. - If warranted, we'll consult infectious disease for possible DC with Dalbavancin. Hypertension - Possibly due to pain. We'll continue home medication lisinopril 20 mg daily. - Clonidine 0.1mg Q6hrs PRN. - Monitor BP trend Insomnia GERD - Continue trazodone and ranitidine. Full code. DVT Prop Lovenox. Discharge Planning Patient has not completely improved now with wound fluctuance. Surgery will follow if neck cellulitis can have I&D. Continue with IV ABX. If no surgical intervention warranted, will consult ID for possible DC with Dal[place]ancin. Problem Qualifiers (1) Sepsis: Qualified Codes: A41.9 - Sepsis, unspecified organism Winifred Wilder [facility] Aug 30, 2017 13:59
[2017-08-30] MEDS: cefTRIAXone INJ 2,000 MG in SODIUM CHLORIDE 0.9% INJ 100 ML IV SCH (16:44)
[2017-08-30] MEDS ORDERED: PHARMACY ORDERED LAB ONE (21:45)
[2017-08-31] VITALS (7 sets, daily range): BP systolic 135–182; BP diastolic 65–89; PULSE 70–79; RESP 17–20; TEMP 97.6–98.8; O2SAT 94–96
[2017-08-31] MEDS: cloNIDine HCL 0.1 MG TAB PO PRN ×2 (05:41→17:19)
[2017-08-31] MEDS ORDERED: LIDOCAINE 1%/EPINEPHrine 1:100,000 SOLN 20 ML VIAL INFIL ONE (07:45)
--- NOTE | 2017-08-31 07:47 | HHI.PR ---
Subjective Subjective Notes Persistent swelling and pain of posterior neck. Objective Vitals/I&O Vital Signs Date Time Temp Pulse Resp B/P (MAP) Pulse Ox O2 Delivery O2 Flow Rate FiO2 08/31/17 04:40 97.6 79 19 181/87 (118) 96 08/30/17 16:33 Nasal Cannula 2.00 Labs Laboratory Tests Test 08/30/17 08:24 08/30/17 23:15 White Blood Count 19.2 Red Blood Count 3.74 Hemoglobin 11.6 Hematocrit 34.9 Mean Corpuscular Volume 93.3 Mean Corpuscular Hemoglobin 31.0 Mean Corpuscular Hemoglobin Concent 33.2 Red Cell Distribution Width 13.7 Platelet Count 265 Mean Platelet Volume 9.0 Neutrophils (%) (Auto) 81.2 Lymphocytes (%) (Auto) 6.3 Monocytes (%) (Auto) 10.3 Eosinophils (%) (Auto) 2.0 Basophils (%) (Auto) 0.2 Neutrophils # (Auto) 15.6 Lymphocytes # (Auto) 1.2 Monocytes # (Auto) 2.0 Eosinophils # (Auto) 0.4 Basophils # (Auto) 0.0 CBC Comment DIFF FINAL Differential Comment Blood Urea Nitrogen 13 Creatinine 0.75 Random Glucose 76 Calcium Level 9.1 Sodium Level 137 Potassium Level 3.7 Chloride Level 100 Carbon Dioxide Level 30.4 Anion Gap 7 Estimat Glomerular Filtration Rate 103 Vancomycin Level Trough 6.5 Date/Time Source Procedure Growth Status 08/28/17 15:32 Blood Peripheral Aerobic Blood Culture - Preliminary NO GROWTH IN 2 DAYS Resulted 08/28/17 15:32 Blood Peripheral Anaerobic Blood Culture - Preliminary NO GROWTH IN 2 DAYS Resulted Radiology Last Impressions Neck CT 08/28/17 0918 Signed Impressions: Service Date/Time: Monday, August 28, 2017 10:44 - CONCLUSION: 1. Cellulitis in the posterior left neck without abscess. 2. There is a 10 mm sebaceous cyst present also in the same location Dallin Real MD Narrative Exam NAD Post neck swelling, small amt of fluctuance A/P Assessment and Plan Incision and drainage at bedside today. Spoke in detail with the patient and nurse. CaliReji AYERS Aug 31, 2017 07:47
[2017-08-31] MEDS: LISINOPRIL 20 MG TAB PO SCH (08:50)
[2017-08-31] MEDS: VANCOMYCIN 1,000 MG/NS 250 ML IV SCH ×4 (08:51→21:56)
[2017-08-31] MEDS: SODIUM CHLORIDE 0.9% FLUSH 10 ML FLUSH IV FLUSH SCH ×2 (08:51→21:56)
[2017-08-31 10:05] LABS: AUTOMATED NEUTROPHIL # 8.9 TH/MM3 (1.8-7.7); BASOPHIL % 0.2 % (0.0-2.0); EOSINOPHIL # 0.3 TH/MM3 (0-0.4); EOSINOPHIL % 2.3 % (0.0-4.0); HEMATOCRIT 32.3 % (39.0-51.0); HEMOGLOBIN 10.9 GM/DL (13.0-17.0); LYMPH % 8.7 % (9.0-44.0); MEAN CELL VOLUME 92.2 FL (80.0-100.0); MEAN CORPUSCULAR HEMOGLOBIN 31.1 PG (27.0-34.0); MEAN CORPUSCULAR HGB CONC 33.8 % (32.0-36.0); MEAN PLATELET VOLUME 8.4 FL (7.0-11.0); MONO % 9.5 % (0.0-8.0); MONOCYTE # 1.1 TH/MM3 (0-0.9); NEUT % 79.3 % (16.0-70.0); PLATELET COUNT 270 TH/MM3 (150-450); RED CELL DISTRIBUTION WIDTH 13.7 % (11.6-17.2); WHITE BLOOD COUNT 11.2 TH/MM3 (4.0-11.0)
--- NOTE | 2017-08-31 10:33 | HHI.PR ---
Subjective Remarks Follow-up visit next cellulitis, sebaceous cyst . Patient seen and examined today. Reports he still has the neck wound and it has some drainage. States he was seen by the surgeon and will do I&D at the bedside. Denies SOB/ dyspnea. Denies chest pain, palpitations, headaches, dizziness. Denies fevers, chills, n/v/d. Objective Vitals Vital Signs Date Time Temp Pulse Resp B/P (MAP) Pulse Ox O2 Delivery O2 Flow Rate FiO2 08/31/17 08:12 98.3 78 20 166/78 (107) 94 08/31/17 04:40 97.6 79 19 181/87 (118) 96 08/31/17 00:00 97.9 70 18 147/65 (92) 95 08/30/17 20:00 99.1 72 18 145/72 (96) 95 08/30/17 17:13 99.2 85 18 136/74 (94) 97 08/30/17 16:33 95 Nasal Cannula 2.00 08/30/17 13:33 99.5 80 18 196/77 (116) 95 I/O 08/30/17 08/30/17 08/30/17 08/31/17 08/31/17 08/31/17 07:00 15:00 23:00 07:00 15:00 23:00 Intake Total 250 ml 200 ml 800 ml Balance 250 ml 200 ml 800 ml Intake Oral 550 ml IV Total 250 ml 200 ml 250 ml # Voids 3 3 # Bowel Movements 0 Result Diagram: 08/31/17 0957 08/30/17823 Imaging Last Impressions Neck CT 08/28/17917 Signed Impressions: Service Date/Time: Monday, August 28, 2017 10:44 - CONCLUSION: 1. Cellulitis in the posterior left neck without abscess. 2. There is a 10 mm sebaceous cyst present also in the same location Dallin Real MD Objective Remarks GENERAL: This is a well-nourished, well-developed patient, in no apparent distress. SKIN: Warm and dry. HEENT: Right occipital area with small erythematous lesion. Normocephalic. Pupils equal round and reactive. Nose without bleeding. Airway patent. NECK: Trachea midline. Back of the neck erythema and edema noted, slight fluctuance surrounding the center, open wound in the center x2 draining purulent small amount drain CARDIOVASCULAR: Regular rate and rhythm without murmurs, gallops, or rubs. RESPIRATORY: Clear to auscultation. Breath sounds equal bilaterally. No wheezes , rales, or rhonchi. GASTROINTESTINAL: Abdomen soft, non-tender, nondistended. Bowel Sounds normoactive x4. MUSCULOSKELETAL: Extremities without clubbing, cyanosis, or edema. NEUROLOGICAL: Awake and alert. Oriented to time, place, person. No focal neuro deficit. Moves all extremities. Normal speech. Procedures None A/P Problem List: (1) Sepsis ICD Code: A41.9 - Sepsis, unspecified organism Status: Acute (2) Cellulitis of neck ICD Code: L03.221 - Cellulitis of neck Status: Acute (3) HTN (hypertension) ICD Code: I10 - Essential (primary) hypertension (4) GERD (gastroesophageal reflux disease) ICD Code: K21.9 - Gastro-esophageal reflux disease without esophagitis (5) Insomnia ICD Code: G47.00 - Insomnia, unspecified Assessment and Plan Mr. Saldana is a pleasant 72-year-old [employer] with a history of hypertension who presents to the emergency department today due to 5 day duration of back of the neck swelling, pain that started out as a lump. Patient denies fever but reports chills. Sepsis (WBC 22.3K, pulse 101, infection neck cellulitis) Cellulitis of the neck - SIRS/ Sepsis, we will cover him with Vancomycin (MRSA coverage). - Cont Ceftriaxone 2g Q24hrs for Streptococcus and MSSA coverage. - Patient remains with low grade temp, neck erythema now have slightly extended with fluctuance. Leukocytosis improving, vancomycin consider to possibly stop 08/31/15, improvement with leukocytosis and patient is afebrile. - Blood cultures no growth to date - Pain management with acetaminophen, Percocet, Dilaudid IV for breakthrough pain when necessary. - Extended neck erythema with center fluctuance - mild. Consulted surgery recommends I&D at bedside today. - May continue with ABX today and switch to PO ABX. Wound culture ordered. Will do gram stain to determine ABX. Hypertension - Possibly due to pain. We'll continue home medication lisinopril 20 mg daily. - Clonidine 0.1mg Q6hrs PRN. - Monitor BP trend Insomnia GERD - Continue trazodone and ranitidine. Full code. DVT Prop Lovenox. Discharge Planning Patient for I& D at the bedside. Continue with IV ABX today. Plan to DC with PO ABX follow up wound care at home or can be DCd with IV ABX at home for infusion. Will consult CM. Problem Qualifiers (1) Sepsis: Qualified Codes: A41.9 - Sepsis, unspecified organism Winifred Wilder Aug 31, 2017 10:33
[2017-08-31 11:31] LABS: CREATININE 0.77 MG/DL (0.60-1.30)
--- NOTE | 2017-08-31 13:22 | PD.PROCEDR ---
Procedure Note Procedure Preop dx: posterior neck cellulitis and abscess Post op dx: same Procedure: incision and drainage posterior neck abscess Culture sent EBL: 10cc Patient remained in his bed on the floor. Informed consent and timeout obtained. Posterior neck prepped and draped in usual sterile fashion. After infiltration with local anesthetic 2-3 cm incision created with small amt of purulent fluid drained. Culture obtained. Iodoform packing and dressing applied. Reji Leiva MD Aug 31, 2017 13:22
[2017-08-31] MEDS: ENOXAPARIN SODIUM 40 MG/0.4 ML SYRINGE SQ SCH (13:44)
[2017-08-31] MEDS: cefTRIAXone INJ 2,000 MG in SODIUM CHLORIDE 0.9% INJ 100 ML IV SCH (16:26)
[2017-08-31] MEDS: oxyCODONE/ACETAMINOPHEN 7.5 MG/325 MG TAB PO PRN (17:19)
[2017-08-31] MEDS: TEMAZEPAM 15 MG CAP PO PRN (21:56)
[2017-09-01 00:15] VITALS: BP 130/88; PULSE 80; RESP 18; TEMP 97.6; O2SAT 97
[2017-09-01 04:40] VITALS: BP 190/84; PULSE 74; RESP 19; TEMP 98.2; O2SAT 95
[2017-09-01] MEDS: LISINOPRIL 20 MG TAB PO SCH (07:25)
[2017-09-01] MEDS: VANCOMYCIN 1,000 MG/NS 250 ML IV SCH ×2 (07:25)
[2017-09-01] MEDS: SODIUM CHLORIDE 0.9% FLUSH 10 ML FLUSH IV FLUSH SCH (07:25)
[2017-09-01 07:56] VITALS: BP 181/84; PULSE 75; RESP 18; TEMP 99.3; O2SAT 95
[2017-09-01 10:02] VITALS: O2SAT 96
--- NOTE | 2017-09-01 10:14 | HHI.PR ---
Subjective Remarks Follow-up visit neck cellulitis, s/p I & D . Patient seen and examined today. Reports he is doing well. Requesting to go home. Denies SOB/ dyspnea. Denies chest pain, palpitations, headaches, dizziness. Denies fevers, chills, n/v/d. Objective Vitals Vital Signs Date Time Temp Pulse Resp B/P (MAP) Pulse Ox O2 Delivery O2 Flow Rate FiO2 09/01/17 10:02 96 09/01/17 07:56 99.3 75 18 181/84 (116) 95 09/01/17 04:40 98.2 74 19 190/84 (119) 95 09/01/17 00:15 97.6 80 18 130/88 (102) 97 08/31/17 22:10 96 08/31/17 20:15 98.3 75 17 135/89 (104) 96 08/31/17 15:55 98.8 76 20 175/79 (111) 96 08/31/17 11:41 98.3 72 20 182/80 (114) 95 I/O 08/31/17 08/31/17 08/31/17 09/01/17 09/01/17 09/01/17 07:00 15:00 23:00 07:00 15:00 23:00 Intake Total 800 ml 600 ml 1350 ml 1000 ml Output Total 200 ml Balance 800 ml 400 ml 1350 ml 1000 ml Intake Oral 550 ml 600 ml 900 ml 1000 ml IV Total 250 ml 450 ml Output Urine Total 200 ml # Voids 3 3 0 3 # Bowel Movements 0 0 0 1 2 Result Diagram: 08/31/17 0957 08/31/17 0907 Imaging Last Impressions Neck CT 08/28/17917 Signed Impressions: Service Date/Time: Monday, August 28, 2017 10:44 - CONCLUSION: 1. Cellulitis in the posterior left neck without abscess. 2. There is a 10 mm sebaceous cyst present also in the same location Dallin Real MD Objective Remarks GENERAL: This is a well-nourished, well-developed patient, in no apparent distress. SKIN: Warm and dry. HEENT: Right occipital area with small erythematous lesion. Normocephalic. Pupils equal round and reactive. Nose without bleeding. Airway patent. NECK: Trachea midline. Back of the neck erythema and edema improved, packed drsg CARDIOVASCULAR: Regular rate and rhythm without murmurs, gallops, or rubs. RESPIRATORY: Clear to auscultation. Breath sounds equal bilaterally. No wheezes , rales, or rhonchi. GASTROINTESTINAL: Abdomen soft, non-tender, nondistended. Bowel Sounds normoactive x4. MUSCULOSKELETAL: Extremities without clubbing, cyanosis, or edema. NEUROLOGICAL: Awake and alert. Oriented to time, place, person. No focal neuro deficit. Moves all extremities. Normal speech. Procedures None A/P Problem List: (1) Sepsis ICD Code: A41.9 - Sepsis, unspecified organism Status: Acute (2) Cellulitis of neck ICD Code: L03.221 - Cellulitis of neck Status: Acute (3) HTN (hypertension) ICD Code: I10 - Essential (primary) hypertension (4) GERD (gastroesophageal reflux disease) ICD Code: K21.9 - Gastro-esophageal reflux disease without esophagitis (5) Insomnia ICD Code: G47.00 - Insomnia, unspecified Assessment and Plan Mr. Saldana is a pleasant 72-year-old [employer] with a history of hypertension who presents to the emergency department today due to 5 day duration of back of the neck swelling, pain that started out as a lump. Patient denies fever but reports chills. Sepsis (WBC 22.3K, pulse 101, infection neck cellulitis) Cellulitis of the neck - SIRS/ Sepsis, we will cover him with Vancomycin (MRSA coverage). -dc - Cont Ceftriaxone 2g Q24hrs for Streptococcus and MSSA coverage. -dc - Patient remains with low grade temp, neck erythema now have slightly extended with fluctuance. Leukocytosis improving, vancomycin consider to possibly stop 08/31/15, improvement with leukocytosis and patient is afebrile. - Blood cultures no growth to date - Pain management with acetaminophen, Percocet, Dilaudid IV for breakthrough pain when necessary. - Extended neck erythema with center fluctuance - mild. Consulted surgery recommends I&D at bedside today. - DC with Bactrim DS 10 days, home health care for wound care - DSG change pack gauze every other day or when saturated. Hypertension - Possibly due to pain. We'll continue home medication lisinopril 20 mg daily. - Clonidine 0.1mg Q6hrs PRN. - Monitor BP trend Insomnia GERD - Continue trazodone and ranitidine. Full code. DVT Prop Lovenox. Discharge Planning DC home today with home health care. Wound care. Follow-up with PCP. Discussed With patient. Verbalized understanding. Problem Qualifiers (1) Sepsis: Qualified Codes: A41.9 - Sepsis, unspecified organism Winifred Wilder Sep 01, 2017 10:14
--- NOTE | 2017-09-01 11:44 | HHI.PR ---
Subjective Subjective Notes Wants to go home. No complaints. Objective Vitals/I&O Vital Signs Date Time Temp Pulse Resp B/P (MAP) Pulse Ox O2 Delivery O2 Flow Rate FiO2 09/01/17 10:02 96 09/01/17 07:56 99.3 75 18 181/84 (116) 08/30/17 16:33 Nasal Cannula 2.00 Labs Date/Time Source Procedure Growth Status 08/28/17 15:32 Blood Peripheral Aerobic Blood Culture - Preliminary NO GROWTH IN 4 DAYS Resulted 08/28/17 15:32 Blood Peripheral Anaerobic Blood Culture - Preliminary NO GROWTH IN 4 DAYS Resulted 08/31/17 13:20 Wound Neck Gram Stain - Final Resulted 08/31/17 13:20 Wound Neck Wound Culture Pending Resulted Radiology Last Impressions Neck CT 08/28/17 0918 Signed Impressions: Service Date/Time: Monday, August 28, 2017 10:44 - CONCLUSION: 1. Cellulitis in the posterior left neck without abscess. 2. There is a 10 mm sebaceous cyst present also in the same location Dallin Real MD Narrative Exam NAD Post neck dressing and packing changed- erythema gone, persistent induration, cavity clean, no purulence A/P Assessment and Plan Ok for dc from my standpoint. He will have [facility] wound care. He can f/u with me in two weeks. We can discuss excision of cyst when infection and inflammation is gone. CaliReji MD Sep 01, 2017 11:44
[2017-09-01] MEDS ORDERED: BACT800T5 PO (11:50)
[2017-09-01 12:00] VITALS: BP 176/66; PULSE 75; RESP 18; TEMP 98; O2SAT 95
--- NOTE | 2017-09-01 12:41 | HHI.DS ---
Discharge Summary Admission Date Aug 28, 2017 at 12:00 Discharge Date: Sep 01, 2017 Admitting Diagnosis cellulitis posterior neck (1) Sepsis ICD Code: A41.9 - Sepsis, unspecified organism Status: Acute (2) Cellulitis of neck ICD Code: L03.221 - Cellulitis of neck Status: Acute (3) HTN (hypertension) ICD Code: I10 - Essential (primary) hypertension (4) GERD (gastroesophageal reflux disease) ICD Code: K21.9 - Gastro-esophageal reflux disease without esophagitis (5) Insomnia ICD Code: G47.00 - Insomnia, unspecified Procedures None Brief History - From Admission Mr. Saldana is a pleasant 72-year-old [employer] with a history of hypertension who presents to the emergency department due to swelling and pain on the back of his neck. Started about 5 days prior to his admission, patient reports initially the lump on his neck that kept growing and became more painful. He denies any discharge from the lump. He denies any fever but reports chills. He applied some topical antibiotics as well as heart compression without any relief of symptoms. He went to his primary care physician at the [facility] who referred patient to the emergency department. At the time of this interview, patient is resting well in bed. He complains of neck pain. No fever. Denies any changes in bowel or bladder habits. Denies any chest pain, shortness of breath, cough, abdominal pain. CBC/BMP: 08/31/17 0957 08/31/17 0907 Significant Findings Laboratory Tests Test 08/30/17 08:24 08/30/17 23:15 08/31/17 09:07 08/31/17 09:57 White Blood Count 19.2 TH/MM3 (4.0-11.0) 11.2 TH/MM3 (4.0-11.0) Red Blood Count 3.74 MIL/MM3 (4.50-5.90) 3.50 MIL/MM3 (4.50-5.90) Hemoglobin 11.6 GM/DL (13.0-17.0) 10.9 GM/DL (13.0-17.0) Hematocrit 34.9 % (39.0-51.0) 32.3 % (39.0-51.0) Neutrophils (%) (Auto) 81.2 % (16.0-70.0) 79.3 % (16.0-70.0) Lymphocytes (%) (Auto) 6.3 % (9.0-44.0) 8.7 % (9.0-44.0) Monocytes (%) (Auto) 10.3 % (0.0-8.0) 9.5 % (0.0-8.0) Neutrophils # (Auto) 15.6 TH/MM3 (1.8-7.7) 8.9 TH/MM3 (1.8-7.7) Monocytes # (Auto) 2.0 TH/MM3 (0-0.9) 1.1 TH/MM3 (0-0.9) Imaging Last Impressions Neck CT 08/28/17 0918 Signed Impressions: Service Date/Time: Monday, August 28, 2017 10:44 - CONCLUSION: 1. Cellulitis in the posterior left neck without abscess. 2. There is a 10 mm sebaceous cyst present also in the same location Dallin Real MD PE at Discharge GENERAL: This is a well-nourished, well-developed patient, in no apparent distress. SKIN: Warm and dry. HEENT: Right occipital area with small erythematous lesion. Normocephalic. Pupils equal round and reactive. Nose without bleeding. Airway patent. NECK: Trachea midline. Back of the neck erythema and edema improved. CARDIOVASCULAR: Regular rate and rhythm without murmurs, gallops, or rubs. RESPIRATORY: Clear to auscultation. Breath sounds equal bilaterally. No wheezes , rales, or rhonchi. GASTROINTESTINAL: Abdomen soft, non-tender, nondistended. Bowel Sounds normoactive x4. MUSCULOSKELETAL: Extremities without clubbing, cyanosis, or edema. NEUROLOGICAL: Awake and alert. Oriented to time, place, person. No focal neuro deficit. Moves all extremities. Normal speech. Pt update on day of discharge Follow-up visit neck cellulitis, s/p I & D . Patient seen and examined today. Reports he is doing well. Requesting to go home. Denies SOB/ dyspnea. Denies chest pain, palpitations, headaches, dizziness. Denies fevers, chills, n/v/d. Hospital Course Mr. Saldana is a pleasant 72-year-old [employer] with a history of hypertension who presents to the emergency department back of the neck swelling , pain that started out as a lump. Patient has met sepsis criteria for cellulitis of the neck. He was started on vancomycin and ceftriaxone. Surgical consult was done and he is status post I&D of the neck. Improved neck edema, erythema. Back dressing is being done with packed dressing. Patient is to be discharged home with Bactrim DS 10 days with home health care for wound care. Patient has met maximal benefits of hospitalization. Clinically stable for discharge. Pt Condition on Discharge: Stable Discharge Disposition: Disch w/ Home Health Serv Discharge Time: > 30 minutes Discharge Instructions DIET: Follow Instructions for: Heart Healthy Diet Activities you can perform: Regular-No Restrictions Other Activity Instructions: Avoid scratching neck and head area. Dsg changes every other day or when saturated. NS pack gauze, border dsg. Pending Sensitivities results: gram pos cocci/ MRSA - If cultures are not sensitive to Bactrim, Hepas nurse will call and give further instructions for medications Follow up Referrals: PCP Follow-up - 1 Week Surgical - 2 Weeks with Reji Leiva MD New Medications: Sulfamethoxazole-Trimethoprim (Bactrim DS) 800-160 Mg Tab 1 TAB PO BID for Infection, #20 TAB 0 Refills Continued Medications: Fish Oil-Cholecalciferol ([place]-3 Fish Oil/Vitamin) 1,000-1,000 Mg Cap 1 CAP PO DAILY for Nutritional Supplement, CAP 0 Refills Lisinopril (Lisinopril) 20 Mg Tab 20 MG PO DAILY, #30 TAB 0 Refills Winifred Wilder Sep 01, 2017 12:41
--- NOTE | 2017-09-01 13:20 | HHI.FF ---
Face to Face Verification Diagnosis: (1) Cellulitis of neck (2) Sepsis (3) Insomnia (4) GERD (gastroesophageal reflux disease) (5) HTN (hypertension) Home Health Nursing Order: Medical education Signs/symptoms of disease process Medication education-adverse effect Wound care and dressing changes Instructions: Neck dsg cleanse with saline. Gauze packing/ iodoform covered with bordered gauze. Changed daily or every other day, or when saturated. Home Health Aide Order: To Assist In: Bathing and personal care I have seen patient Michael Saldana Jr on 09/01/17. My clinical findings support the need for the requested home health care services because: Infection w/ risk of complications I certify that my clinical findings support that this patient is homebound because: Unable to use public transportation Winifred Wilder Sep 01, 2017 13:20
--- NOTE | 2017-09-01 13:21 | HHI.DCPOC ---
Discharge Care Plan Diagnosis: (1) HTN (hypertension) (2) GERD (gastroesophageal reflux disease) (3) Insomnia (4) Sepsis (5) Cellulitis of neck Your Health Problems Are: Incision/Drains Inflammation Swelling Goals to Promote Your Health * To prevent worsening of your condition and complications * To maintain your health at the optimal level Directions to Meet Your Goals Take your medications as prescribed Follow your dietary instruction Follow activity as directed Keep your appointments as scheduled Take your immunizations and boosters as scheduled If your symptoms worsen call your PCP, if no PCP go to Urgent Care Center or Emergency Room Smoking is Dangerous to Your Health. Avoid second hand smoke Call the 24-hour hour crisis hotline for domestic abuse at Winifred Wilder Sep 01, 2017 13:21
--- NOTE | 2017-09-01 13:21 | HHI.DCPOC ---
Discharge Care Plan Diagnosis: (1) HTN (hypertension) (2) GERD (gastroesophageal reflux disease) (3) Insomnia (4) Sepsis (5) Cellulitis of neck Your Health Problems Are: Incision/Drains Inflammation Swelling Goals to Promote Your Health * To prevent worsening of your condition and complications * To maintain your health at the optimal level Directions to Meet Your Goals Take your medications as prescribed Follow your dietary instruction Follow activity as directed Keep your appointments as scheduled Take your immunizations and boosters as scheduled If your symptoms worsen call your PCP, if no PCP go to Urgent Care Center or Emergency Room Smoking is Dangerous to Your Health. Avoid second hand smoke Call the 24-hour hour crisis hotline for domestic abuse at Winifred Wilder Sep 01, 2017 13:21
--- NOTE | 2017-09-01 13:21 | HHI.DCPOC ---
Discharge Care Plan Diagnosis: (1) HTN (hypertension) (2) GERD (gastroesophageal reflux disease) (3) Insomnia (4) Sepsis (5) Cellulitis of neck Your Health Problems Are: Incision/Drains Inflammation Swelling Goals to Promote Your Health * To prevent worsening of your condition and complications * To maintain your health at the optimal level Directions to Meet Your Goals Take your medications as prescribed Follow your dietary instruction Follow activity as directed Keep your appointments as scheduled Take your immunizations and boosters as scheduled If your symptoms worsen call your PCP, if no PCP go to Urgent Care Center or Emergency Room Smoking is Dangerous to Your Health. Avoid second hand smoke Call the 24-hour hour crisis hotline for domestic abuse at Winifred Wilder Sep 01, 2017 13:21
[2017-09-02] MEDS ORDERED: PHARMACY ORDERED LAB ONE (08:45)
== END 2017-09-01 14:03 | disposition home health service (06) | DRG 854 ==
LOC: NEPK 08:17 → NEDA 12:00 → N05A 13:37
PROVIDERS: ADMIT Family Medicine; ATTEND Family Medicine
PROC: 0J950ZZ Drainage of Left Neck Subcutaneous Tissue and Fascia, Open Approach (ICD-10-PCS; principal; 2017-08-31)
DX: A41.9 Sepsis, unspecified organism (principal); L02.11 Cutaneous abscess of neck; I10 Essential (primary) hypertension; L03.221 Cellulitis of neck; G47.00 Insomnia, unspecified; K21.9 Gastro-esophageal reflux disease without esophagitis; L72.3 Sebaceous cyst; I25.10 Atherosclerotic heart disease of native coronary artery without angina pectoris; E78.00 Pure hypercholesterolemia, unspecified; Z79.899 Other long term (current) drug therapy; F17.210 Nicotine dependence, cigarettes, uncomplicated
CPT/HCPCS: 70491; 80048; 80202; 82565; 83605; 85007; 85025; 85027; 86403; 87040; 87070; 87147; 87186; 87205; 96365; 96375; J1170; J0696; J1650; J2270; J2405; J3370; J7030; J7050; Q9967